=== PATIENT | female | born 1930 | race Caucasian/White ===

== ENCOUNTER 2022-04-09 11:20 | Outpatient (CLI) | payer MEDICARE ==
[~2022-04-09] VITALS: Ht 162.6 cm; Wt 49.9 kg
[2022-04-09 12:10] LABS: BASOPHILS % (AUTO) 0.3 % (0-1); EOSINOPHILS % (AUTO) 0 % (0-6); HEMATOCRIT 26.9 % (35.0-45.0); HEMOGLOBIN 9.1 g/dl (12.0-16.0); LYMPHOCYTES # (AUTO) 1.2 X10'3 (1.1-4.8); LYMPHOCYTES % (AUTO) 27.5 % (21-51); MEAN CORPUSCULAR HEMOGLOBIN 34.1 PG (27.0-31.0); MEAN CORPUSCULAR HGB CONC 33.9 g/dL (33.0-36.5); MEAN CORPUSCULAR VOLUME 100.7 FL (78-98); MEAN PLATELET VOLUME 6.5 FL (7.4-10.4); MONOCYTES # (AUTO) 0.2 X10'3 (0-0.9); MONOCYTES % (AUTO) 4.5 % (2-12); NEUTROPHILS # (AUTO) 2.9 X10'3 (1.8-7.7); NEUTROPHILS % (AUTO) 67.7 % (42-75); PLATELET COUNT 270 X10'3 (140-440); RED BLOOD COUNT 2.67 X10'6 (4.20-5.60); RED CELL DISTRIBUTION WIDTH 16.9 % (11.5-14.5); WHITE BLOOD COUNT 4.4 X10'3 (4.5-11.0)
[2022-04-09 12:16] LABS: APTT 25 SECONDS (22-32)
[2022-04-09 12:28] LABS: ALANINE AMINOTRANSFERASE 25 U/L (12-78); ALBUMIN 2.6 G/DL (3.4-5.0); ALKALINE PHOSPHATASE 59 IU/L (46-116); ANION GAP 7 (8-16); ASPARTATE AMINO TRANSFERASE 27 U/L (10-37); BILIRUBIN,TOTAL 0.2 MG/DL (0.1-1.0); BLOOD UREA NITROGEN 14 MG/DL (7-18); BUN/CREATININE RATIO 19.4 (6.6-38.0); CALCIUM 8.7 MG/DL (8.5-10.1); CHLORIDE 102 MMOL/L (99-107); CREATININE 0.72 MG/DL (0.40-0.90); GLUCOSE 145 MG/DL (70-104); POTASSIUM 3.8 MMOL/L (3.5-5.1); SODIUM 133 MMOL/L (135-145); TOTAL CARBON DIOXIDE 24.1 MMOL/L (24-32); eGFR 76 ML/MIN
[2022-04-09 12:29] LABS: ALBUMIN/GLOBULIN RATIO 0.3 (1.1-1.5); TOTAL PROTEIN 12.5 G/DL (6.4-8.2)
[2022-04-09] MEDS ORDERED: IODIXANOL 320 MG/ML INFUS..BTL 100ML IV ONE (12:41)
[2022-04-09 13:10] VITALS: BP 138/72
[2022-04-09] MEDS ORDERED: metoprolol tartrate 1mg/ml inj IV ONE ×2 (13:13→13:30)
[2022-04-09 13:20] VITALS: BP 129/69
[2022-04-09 13:30] VITALS: BP 134/67
[2022-04-09] MEDS ORDERED: albuterol 2.5 MG/3 ML nebule NEB ONE (14:15)
[2022-04-09 14:18] LABS: ABG BASE EXCESS 1.5 mmol/L (-2.0-2.0); ABG PCO2 (T) 35.1 mmHg (32.0-45.0); ALLEN'S TEST POSITIVE; FCOHb 0.7 % (0.0-3.9); FMetHb 0.3 % (0.0-1.5); TOTAL HEMOGLOBIN 10.3 G/dl (12.0-16.0)
== END 2022-04-09 23:59 | disposition home or self-care (01) ==
LOC: RAD 11:20
PROVIDERS: ATTEND Internal Medicine Cardiovascular Disease
DX: Z01.818 Encounter for other preprocedural examination (principal); I70.0 Atherosclerosis of aorta; I51.7 Cardiomegaly; M43.8X5 Other specified deforming dorsopathies, thoracolumbar region; N28.1 Cyst of kidney, acquired; K57.30 Diverticulosis of large intestine without perforation or abscess without bleeding; M40.294 Other kyphosis, thoracic region; M85.88 Other specified disorders of bone density and structure, other site; R94.2 Abnormal results of pulmonary function studies; J98.4 Other disorders of lung; J44.9 Chronic obstructive pulmonary disease, unspecified; I35.0 Nonrheumatic aortic (valve) stenosis; I65.29 Occlusion and stenosis of unspecified carotid artery; Z79.899 Other long term (current) drug therapy
CPT/HCPCS: 36415; 36600; 71046; 71275; 74174; 80053; 82803; 85018; 85025; 85610; 85730; 94060; 94727; 94729; 94760; J3490; Q9967